=== PATIENT | female | born 1980 | race Caucasian/White ===

== ENCOUNTER 2016-06-29 21:56 | Emergency (ER) | payer OTHER ==
[~2016-06-29] VITALS: Ht 165.1 cm; Wt 137.4 kg
[~2016-06-29 21:56] MED LIST: FLEXERIL10 MG PO; MIRENA52 MG IY; NAPROSYN500 MG PO; NOHOMEMEDS; PRILOSEC20 MG PO; TYLENOL REGULA325 MG PO
[2016-06-29 22:34] LABS: HEMATOCRIT 40.6 % (36.0-46.0); MCH 32.2 PG (29.0-34.0); MCHC 36.7 G/DL (30.0-36.0); MCV 87.7 FL (83-99); MEAN PLAT.VOLUME 9.7 uM^3 (9.5-12.4); PLATELET COUNT 287 K/uL (156-360); RBC DIS.WIDTH-SD 38.2 % (39-53); RED BLOOD COUNT 4.63 M/uL (3.80-5.20)
[2016-06-29 22:43] LABS: CHLORIDE 107 mEq/L (99-109); POTASSIUM 3.9 mEq/L (3.7-5.4); SODIUM 139 mEq/L (136-147)
[2016-06-29 22:45] LABS: GLUCOSE 102 mg/dL (70-99)
[2016-06-29 22:47] LABS: ANION GAP 6 MEQ/L (2-14)
[2016-06-29 22:49] LABS: GFR ESTIMATE (CALCULATED) > 59 mL/min/
[2016-06-29 22:50] LABS: UREA NITROGEN (BUN) 16 mg/dL (9-23)
[2016-06-29 22:54] LABS: TROP-I INTERPRETATION NEGATIVE; TROPONIN-I < 0.01 ng/mL (0.0-0.30)
[2016-06-29 23:14] LABS: D-DIMER ELISA 0.44 mg/L FEU (< 0.57)
[2016-06-29 23:21] LABS: TOTAL BILIRUBIN 1.7 mg/dL (0.0-1.0)
[2016-06-29 23:22] LABS: ALKALINE PHOSPHATASE 66 IU/L (3-129)
[2016-06-29 23:25] LABS: DIRECT BILIRUBIN 0.5 mg/dL (0.0-0.3)
[2016-06-29 23:26] LABS: LIPASE 11 U/L (1.0-51.0)
[2016-06-30] MEDS ORDERED: VALIUM2 MG PO (01:32)
[2016-06-30] MEDS ORDERED: PEPCID20 MG PO (01:32)
[2016-06-30 01:42] LABS: TROP-I INTERPRETATION NEGATIVE; TROPONIN-I < 0.01 ng/mL (0.0-0.30)
[2016-06-30 02:05] VITALS: BP 110/74
== END 2016-06-30 02:22 | disposition home or self-care (01) ==
LOC: EME 21:56
PROVIDERS: Emergency Medicine
DX: F41.1 Generalized anxiety disorder (principal); M94.0 Chondrocostal junction syndrome [Tietze]; R17 Unspecified jaundice; J45.909 Unspecified asthma, uncomplicated; K21.9 Gastro-esophageal reflux disease without esophagitis; Z87.891 Personal history of nicotine dependence
CPT/HCPCS: 71020; 76705; 80048; 80076; 83690; 84484; 85027; 85379; 93005; 99281; 99285; J7030; S0028

== ENCOUNTER 2017-08-06 08:12 | Inpatient (IN) | payer OTHER ==
[~2017-08-06] VITALS: Ht 170.2 cm; Wt 123.2 kg
[2017-08-06] VITALS (18 sets, daily range): BP systolic 100–135; BP diastolic 57–72
[~2017-08-06 08:12] MED LIST changes: +PEPCID20 MG PO; +VALIUM2 MG PO
[2017-08-06] MEDS ORDERED: PRENATAL TABLE1 EAC3 PO (09:02)
[2017-08-06] MEDS ORDERED: ZOLOFT100 MG PO (09:03)
[2017-08-06] MEDS ORDERED: VALTREX50 MG/ML PO (09:04)
[2017-08-06 09:45] LABS: BASOPHIL (%) 0.2 % (0-1); EOSINOPHIL (%) 2.5 % (0-5); EOSINOPHIL COUNT 0.4 K/uL (0-0.3); HEMOGLOBIN 13.1 G/DL (11.9-15.5); IMMATURE GRANULOCYTE (%) 0.8 % (0.0-0.7); LYMPHOCYTE COUNT 2.2 K/uL (1.0-2.8); MCH 32.9 PG (29.0-34.0); MCHC 35.4 G/DL (30.0-36.0); MONOCYTE (%) 4.9 % (3-12); MONOCYTE COUNT 0.7 K/uL (0-0.8); NEUTROPHIL (%) 75.6 % (45-76); NEUTROPHIL COUNT 10.5 K/uL (1.8-6.4); PLATELET COUNT 244 K/uL (156-360); RBC DIS.WIDTH-CV 13.6 % (11.8-14.6); RED BLOOD COUNT 3.98 M/uL (3.80-5.20); WHITE BLOOD COUNT 13.8 K/uL (4.1-10.2)
[2017-08-07] VITALS (20 sets, daily range): BP systolic 88–126; BP diastolic 51–86
[2017-08-08 07:08] LABS: BASOPHIL (%) 0.6 % (0-1); BASOPHIL COUNT 0.1 K/uL (0-0.1); EOSINOPHIL (%) 4.9 % (0-5); EOSINOPHIL COUNT 0.5 K/uL (0-0.3); HEMATOCRIT 34.2 % (36.0-46.0); HEMOGLOBIN 11.5 G/DL (11.9-15.5); IMMATURE GRANULOCYTE (%) 1.1 % (0.0-0.7); LYMPHOCYTE (%) 30.2 % (15-42); MCH 32.5 PG (29.0-34.0); MCHC 33.6 G/DL (30.0-36.0); MCV 96.6 FL (83-99); MONOCYTE (%) 5.2 % (3-12); MONOCYTE COUNT 0.5 K/uL (0-0.8); NEUTROPHIL COUNT 5.8 K/uL (1.8-6.4); PLATELET COUNT 221 K/uL (156-360); RBC DIS.WIDTH-SD 49.5 % (39-53); RED BLOOD COUNT 3.54 M/uL (3.80-5.20)
[2017-08-08 07:39] VITALS: BP 130/72
[2017-08-08] MEDS ORDERED: IBUPROFEN800 MG PO (12:53)
[2017-08-08 14:35] VITALS: BP 122/75
== END 2017-08-08 15:25 | disposition home or self-care (01) | DRG 774 ==
LOC: LDRP-OP → 2WEST 08:14 → LDRP-OP 09-02 13:32
PROVIDERS: Advanced Practice Midwife
PROC: 3E0P7VZ Introduction of Hormone into Female Reproductive, Via Natural or Artificial Opening (ICD-10-PCS; principal; 2017-08-06)
PROC: 0U7C7ZZ Dilation of Cervix, Via Natural or Artificial Opening (ICD-10-PCS; principal; 2017-08-06)
PROC: 3E033VJ Introduction of Other Hormone into Peripheral Vein, Percutaneous Approach (ICD-10-PCS; principal; 2017-08-06)
PROC: 00HU33Z Insertion of Infusion Device into Spinal Canal, Percutaneous Approach (ICD-10-PCS; principal; 2017-08-06)
PROC: 3E0R3BZ Introduction of Anesthetic Agent into Spinal Canal, Percutaneous Approach (ICD-10-PCS; principal; 2017-08-06)
PROC: 10907ZC Drainage of Amniotic Fluid, Therapeutic from Products of Conception, Via Natural or Artificial Opening (ICD-10-PCS; principal; 2017-08-06)
PROC: 0HQ9XZZ Repair Perineum Skin, External Approach (ICD-10-PCS; 2017-08-07)
PROC: 10E0XZZ Delivery of Products of Conception, External Approach (ICD-10-PCS; 2017-08-07)
DX: O70.0 First degree perineal laceration during delivery (principal); O69.1XX0 Labor and delivery complicated by cord around neck, with compression, not applicable or unspecified; Z3A.40 40 weeks gestation of pregnancy; Z37.0 Single live birth; O99.824 Streptococcus B carrier state complicating childbirth; O98.32 Other infections with a predominantly sexual mode of transmission complicating childbirth; A60.00 Herpesviral infection of urogenital system, unspecified; O99.214 Obesity complicating childbirth; E66.01 Morbid (severe) obesity due to excess calories; Z68.42 Body mass index [BMI] 45.0-49.9, adult; O99.344 Other mental disorders complicating childbirth; F32.9 Major depressive disorder, single episode, unspecified; O99.62 Diseases of the digestive system complicating childbirth; K21.9 Gastro-esophageal reflux disease without esophagitis; K44.9 Diaphragmatic hernia without obstruction or gangrene; Z87.891 Personal history of nicotine dependence
CPT/HCPCS: 85025; C1755; G0378; J1200; J2540; J3010; J7120

== ENCOUNTER 2017-09-15 09:01 | Emergency (ER) | payer OTHER ==
[~2017-09-15] VITALS: Ht 167.6 cm; Wt 112.2 kg
[~2017-09-15 09:01] MED LIST changes: +IBUPROFEN800 MG PO; +PRENATAL TABLE1 EAC3 PO; +VALTREX50 MG/ML PO; +ZOLOFT100 MG PO
[2017-09-15 09:33] LABS: HEMATOCRIT 40.2 % (36.0-46.0); HEMOGLOBIN 14.5 G/DL (11.9-15.5); MCHC 36.1 G/DL (30.0-36.0); MCV 91.4 FL (83-99); PLATELET COUNT 300 K/uL (156-360); RBC DIS.WIDTH-CV 11.6 % (11.8-14.6); RBC DIS.WIDTH-SD 39.1 % (39-53); WHITE BLOOD COUNT 8.8 K/uL (4.1-10.2)
[2017-09-15 09:45] LABS: CHLORIDE 108 mEq/L (99-109); POTASSIUM 3.9 mEq/L (3.7-5.4); SODIUM 140 mEq/L (136-147)
[2017-09-15 09:47] LABS: GLUCOSE 103 mg/dL (70-99); TOTAL PROTEIN 6.5 g/dL (6.4-8.3)
[2017-09-15 09:49] LABS: TOTAL BILIRUBIN 2.5 mg/dL (0.0-1.0)
[2017-09-15 09:51] LABS: ALKALINE PHOSPHATASE 99 IU/L (3-129); CREATININE 0.7 mg/dL (0.6-1.3); GFR ESTIMATE (CALCULATED) > 59 mL/min/
[2017-09-15 09:52] LABS: AST (GOT) 18 IU/L (2-34); DIRECT BILIRUBIN 0.8 mg/dL (0.0-0.3); UREA NITROGEN (BUN) 16 mg/dL (9-23)
[2017-09-15 09:54] LABS: ALT (GPT) 12 IU/L (3-49); LIPASE 20 U/L (1.0-51.0); TROP-I INTERPRETATION NEGATIVE; TROPONIN-I < 0.01 ng/mL (0.0-0.30)
[2017-09-15 10:00] LABS: QUANTITATIVE HCG < 4.0 MIU/ML
[2017-09-15 11:20] LABS: APPEARANCE CLEAR ((CLEAR)); BILIRUBIN NEGATIVE; BLOOD NEGATIVE; COLOR YELLOW ((YELLOW)); GLUCOSE (STRIP) NEGATIVE; KETONES NEGATIVE; LEUKOCYTES NEGATIVE; NITRITE NEGATIVE; PROTEIN (STRIP) NEGATIVE; SPECIFIC GRAVITY 1.026 (1.000-1.030); UCUL ADDED? NO; UROBILINOGEN 0.2 MG/DL (0.2-1.0)
[2017-09-15 12:01] LABS: TROP-I INTERPRETATION NEGATIVE; TROPONIN-I 0.01 ng/mL (0.0-0.30)
[2017-09-15] MEDS ORDERED: MAALOX MAXIMUM355 ML PO (12:13)
[2017-09-15 12:31] VITALS: BP 108/71
== END 2017-09-15 12:32 | disposition home or self-care (01) ==
LOC: EME 09:01
PROVIDERS: Emergency Medicine
DX: O90.89 Other complications of the puerperium, not elsewhere classified (principal); R07.9 Chest pain, unspecified; R10.13 Epigastric pain; Z87.19 Personal history of other diseases of the digestive system; M54.9 Dorsalgia, unspecified; Z90.49 Acquired absence of other specified parts of digestive tract; Z87.891 Personal history of nicotine dependence
CPT/HCPCS: 71046; 71275; 74177; 80048; 80076; 81003; 83690; 84484; 84702; 85027; 93005; 99281; 99285; J2270; J7040

== ENCOUNTER 2017-12-31 09:38 | Day surgery (SDC) | payer OTHER ==
[~2017-12-31] VITALS: Ht 172.7 cm; Wt 108.5 kg
[~2017-12-31 09:38] MED LIST changes: +MAALOX ADVANCE355 ML PO; +MAALOX MAXIMUM355 ML PO
[2017-12-31 10:20] VITALS: BP 113/66
[2017-12-31 13:50] VITALS: BP 117/59
[2017-12-31 14:26] VITALS: BP 117/59
== END 2017-12-31 14:39 | disposition home or self-care (01) ==
LOC: SDC 09:38
PROC: 0U564ZZ Destruction of Left Fallopian Tube, Percutaneous Endoscopic Approach (ICD-10-PCS; principal; 2017-12-31)
PROC: 0DNW4ZZ Release Peritoneum, Percutaneous Endoscopic Approach (ICD-10-PCS; principal; 2017-12-31)
DX: Z30.2 Encounter for sterilization (principal); K66.0 Peritoneal adhesions (postprocedural) (postinfection); Z90.79 Acquired absence of other genital organ(s); K21.9 Gastro-esophageal reflux disease without esophagitis; K44.9 Diaphragmatic hernia without obstruction or gangrene; E66.01 Morbid (severe) obesity due to excess calories; Z68.36 Body mass index [BMI] 36.0-36.9, adult; J45.909 Unspecified asthma, uncomplicated; R00.1 Bradycardia, unspecified; Z87.891 Personal history of nicotine dependence
CPT/HCPCS: 84702; 85025; 86850; 86900; 86901; J0131; J0330; J1100; J1170; J1885; J2250; J2405; J2710; J2765; J3010; J7643; Q0175; S0020